=== PATIENT | male | born 1985 | race Caucasian/White ===

== ENCOUNTER → 2016-04-07 | Outpatient (CLI) | payer BC ==
[~2016-04-07] MED LIST: CHOL4POW PO; PANT40TA PO
--- NOTE | 2016-04-07 14:50 | DIAGNOSTIC IMAGING REPORT ---
NUCLEAR GASTRIC EMPTYING STUDY: CLINICAL HISTORY: R14.0 Abdominal [id number] COMPARISON STUDY: None TECHNIQUE: Following the oral administration of 1.1 mCi of technetium 99m sulfur colloid in egg sandwich and 8 ounces of water, static abdominal images are performed anteriorly and posteriorly at 0 minutes, 1 hour, 2 hours, and 4 hour time intervals. Gastric emptying was calculated utilizing the geometric mean method. FINDINGS: There is approximately 54 % gastric activity remaining at the 1 hour time interval, 26 % at the 2 hour time interval (normal is less than 60%), and 1 % remaining at the 4 hour time interval (normal is less than 10%). These findings are consistent with a normal study IMPRESSION: Findings are consistent with a normal study. Electronically signed by: John Manzano M.D. 04/07/2016 2:48 PM Dictated Date/Time: 04/07/2016 2:47 PM
== END | disposition home or self-care (01) ==
LOC: C.NUCL 10:03
PROVIDERS: ATTEND Registered Nurse
DX: R14.0 Abdominal distension (gaseous) (principal); K29.70 Gastritis, unspecified, without bleeding